=== PATIENT | male | born 1935 | race Caucasian/White ===

== ENCOUNTER 2019-01-23 00:55 | Emergency (ER) | payer OTHER ==
--- NOTE | 2019-01-23 01:47 | PDOC ---
Attending Attestation - Resident Resident Name: Surya Cross - ED Attending Attestation I have performed the following: I have examined & evaluated the patient, The case was reviewed & discussed with the resident, I agree w/resident's findings & plan - HPI HPI: 01/23/19 02:04 Pt comes with momentary AMS at the NH associated with low blood pressure. In the ER his BP is higher at 120 systolic (above the earlier 90 systolic) Also pt is A+Ox3 here. - Physicial Exam PE: 01/23/19 04:20 Agree with resident exam. - Medical Decision Making 01/23/19 02:07 Blood glucose is 145. 01/23/19 04:19 Labs are normal; Pt will be discharged as he has normal labs ormal CT scan and he is ambulating about. He is at his baseline demented state. He is able to answer questions and he is making sense. Pt does not require admission at this time. He will be sent back to his NH.
[2019-01-23 01:48] VITALS: BP 121/75; PULSE 60; TEMP 98; BMI 60.3
[2019-01-23] MEDS ORDERED: SODIUM CHLORIDE 0.9% 500 ML INFUS.BAG IV ONE (01:53)
[2019-01-23 02:17] LABS: BASO % 0.7 % (0-2.0); EOS % 2.2 % (0-4.5); HEMATOCRIT 36.9 % (35.4-49); HEMOGLOBIN 11.9 GM/dL (11.7-16.9); LYMPH % 13.3 % (8-40); MCH 30.9 pg (25.7-33.7); MCHC 32.1 g/dl (32.0-35.9); MEAN CELL VOLUME 96.1 fl (80-96); MEAN PLT VOLUME 8.7 fl (7.5-11.1); MONO % 3.6 % (3.8-10.2); NEUT % 80.2 % (42.8-82.8); PLATELET COUNT 219 K/MM3 (134-434); RBC 3.84 M/mm3 (4.00-5.60); RDW 15.1 % (11.9-15.9); WHITE BLOOD COUNT 9.1 K/mm3 (4.0-10.0)
[2019-01-23 02:35] LABS: ALBUMIN 3.8 g/dl (3.4-5.0); BILIRUBIN,TOTAL 0.2 mg/dL (0.2-1); BLOOD UREA NITROGEN 62.5 mg/dL (7-18); CALCIUM 8.9 mg/dL (8.5-10.1); CREATININE 2.3 mg/dL (0.55-1.3)
--- NOTE | 2019-01-23 03:27 | PDOC ---
History of Present Illness - General Chief Complaint: Altered Mental Status Stated Complaint: UNRESPONSIVE Time Seen by Provider: 01/23/19 01:09 History Source: Patient Exam Limitations: No Limitations - History of Present Illness Initial Comments: 01/23/19 01:13 Sajan Peña is an 83M with PMH Alzheimer's, HTN presenting from [facility] for an episode of unresponsiveness. Per [facility] report, patient was sitting outside and suddenly became unresponsive for 5 minutes. BP measured 90/40, HR 50s, sweating profusely, cold skin. Slowly became more responsive and returned to baseline mental status, but sent to ED for concern over this sudden episode. Otherwise no reported fever, fall, sickness, or other prodromal symptoms. At baseline, patient is oriented to self but is confused, does not know where he is, wanders around the home, and otherwise is pleasant. Patient himself reports his own name, does not know the month, year, or time of day. Does not know where he is or why he is at the hospital. Denies fever, chills, CP, SOB, abd pain, weakness, urinary sx, C/D, N/V. Says he feels otherwise quite good. Past History - Past Medical History Allergies/Adverse Reactions: Allergies Allergy/AdvReac Type Severity Reaction Status Date / Time cefixime Allergy Mild Verified 01/23/19 01:23 Cephalosporins Allergy Mild Verified 01/23/19 01:25 doxycycline Allergy Mild Verified 01/23/19 01:24 iodine Allergy Mild Verified 01/23/19 01:25 tetracycline Allergy Mild Verified 01/23/19 01:24 Home Medications: Ambulatory Orders Acetaminophen [Tylenol] 325 mg PO DAILY 01/23/19 Allopurinol [Zyloprim -] 100 mg PO DAILY 01/23/19 Aspirin 81 mg PO DAILY 01/23/19 Docusate Sodium [Colace] 100 mg PO DAILY 01/23/19 Dutasteride 0.5 mg PO DAILY 01/23/19 Fenofibrate [Lipofen] 150 mg PO DAILY 01/23/19 Gabapentin 100 mg PO DAILY 01/23/19 Isosorbide Mononitrate [Isosorbide Mononitrate ER] 30 mg PO DAILY 01/23/19 Metformin HCl [Metformin HCl ER] 500 mg PO DAILY 01/23/19 Metoprolol Tartrate 25 mg PO DAILY 01/23/19 Mirtazapine [Remeron -] 30 mg PO DAILY 01/23/19 Pantoprazole Sodium 40 mg PO DAILY 01/23/19 Ramipril 01/23/19 Sennosides [Senna] 8.6 mg PO DAILY 01/23/19 Sitagliptin Phosphate [Januvia] 50 mg PO DAILY 01/23/19 Tamsulosin HCl 0.4 mg PO DAILY 01/23/19 COPD: No - Suicide/Smoking/Psychosocial Hx Smoking History: Unknown if ever smoked Hx Alcohol Use: No Drug/Substance Use Hx: No Review of Systems - Review of Systems Able to Perform ROS?: Yes Is the patient limited Faroese proficient: No Constitutional: No: Symptoms Reported HEENTM: No: Symptoms Reported Respiratory: No: Symptoms reported Cardiac (ROS): No: Symptoms Reported ABD/GI: No: Symptoms Reported : No: Symptoms Reported Musculoskeletal: No: Symptoms Reported Integumentary: No: Symptoms Reported Neurological: No: Symptoms reported Endocrine: No: Symptoms Reported Hematologic/Lymphatic: No: Symptoms Reported All Other Systems: Reviewed and Negative *Physical Exam - Vital Signs Last Vital Signs Temp Pulse Resp BP Pulse Ox 98.0 F 60 20 121/75 100 01/23/19 01:46 01/23/19 01:46 01/23/19 01:46 01/23/19 01:46 01/23/19 01:46 - Physical Exam General Appearance: Yes: Nourished, Appropriately Dressed. No: Apparent Distress HEENT: positive: EOMI, MARY, Normal Voice, Symmetrical, Pharynx Normal, Hearing Grossly Normal. negative: Scleral Icterus (R), Scleral Icterus (L), Pharyngeal Erythema, Tonsillar Exudate, Tonsillar Erythema Neck: positive: Trachea midline, Supple. negative: Tender, Lymphadenopathy (R) , Lymphadenopathy (L) Respiratory/Chest: positive: Lungs Clear, Normal Breath Sounds. negative: Chest Tender, Respiratory Distress, Crackles, Rales, Rhonchi Cardiovascular: positive: Regular Rhythm, Regular Rate. negative: Murmur Gastrointestinal/Abdominal: positive: Normal Bowel Sounds, Flat, Soft Musculoskeletal: positive: Normal Inspection. negative: CVA Tenderness Extremity: positive: Normal Capillary Refill, Normal Inspection, Normal Range of Motion, Pelvis Stable. negative: Tender Integumentary: positive: Normal Color, Dry, Warm Neurologic: positive: Alert, Normal Mood/Affect, Normal Response, Motor Strength 5/5, Disoriented (oriented to name, but not place or time) ED Treatment Course - LABORATORY CBC & Chemistry Diagram: 01/23/19 02:00 01/23/19 02:00 - ADDITIONAL ORDERS Additional order review: Laboratory Results 01/23/19 01/23/19 01/23/19 02:00 02:00 01:54 Sodium 144 Potassium 6.0 H Chloride 117 H Carbon Dioxide 20 L Anion Gap 8 BUN 62.5 H Creatinine 2.3 H Est GFR (CKD-EPI)AfAm 28.93 Est GFR (CKD-EPI)NonAf 24.96 POC Glucometer 145 Random Glucose 147 H Calcium 8.9 Total Bilirubin 0.2 AST 41 H ALT 25 Alkaline Phosphatase 59 Creatine Kinase 621 H Troponin I < 0.02 Total Protein 7.0 Albumin 3.8 01/23/19 01/23/19 02:00 01:54 RBC 3.84 L MCV 96.1 H MCHC 32.1 RDW 15.1 MPV 8.7 Neutrophils % 80.2 Lymphocytes % 13.3 Monocytes % 3.6 L Eosinophils % 2.2 Basophils % 0.7 POC Glucometer 145 - RADIOLOGY Radiology Studies Ordered: Category Date Time Status CHEST X-RAY PORTABLE* [RAD] Stat Radiology 01/23/19 01:53 Ordered - Medications Given in the ED: ED Medications Discontinued Medications Generic Name Dose Route Start Last Admin Trade Name Freq PRN Reason Stop Dose Admin Sodium Chloride 1,000 ml 01/23/19 01:53 01/23/19 02:21 Normal Saline - IV 01/23/19 01:54 1,000 ml ONCE ONE Administration Medical Decision Making - Medical Decision Making 01/23/19 01:13 Sajan Peña is an 83M with PMH Alzheimer's, HTN presenting from [facility] for an episode of unresponsiveness and AMS. Patient presentation is concerning for BP drop and diaphoresis, possibly TIA vs. PA vs. medication overdose vs. autonomic dysfunction. Will evaluate for AMS via: CMP CBC CP ECG CXR UA/UC Head CT ECG shows NSR with PACs, HR 60, no concerning features. UA does not show signs on infection. K 6.1, baseline 4.1. Cr 2.3, 2.3 at baseline per [facility] records. CT head read pending. 01/23/19 05:35 CT head shows mild volume loss but no acute pathology. Good to go home after treating elevated potassium. 01/23/19 05:35 Patient agitated, removed IV, cursing at staff, and refusing kayelate. Stable to send home without treating potassium but will recommend follow-up given normal ECG and no s/s hyperkalemia. *DC/Admit/Observation/Transfer Diagnosis at time of Disposition: Altered mental status Qualifiers: Altered mental status type: disorientation Qualified Code(s): R41.0 - Disorientation, unspecified - Discharge Dispostion Disposition: [facility] Condition at time of disposition: Stable Decision to Admit order: No - Referrals Referrals: Prasad Khan [Primary Care Provider] - - Patient Instructions Printed Discharge Instructions: DI for Altered Mental Status Additional Instructions: Today you were evaluated for altered mental status. We got blood labs that show no abnormalities from your previous labs other than elevated potassium. When [facility] to [facility] please take some kayexelate to treat this. Your urine does not show any signs of infection You head CT shows mild volume loss consistent with dementia and age, but no other concerning pathologies that need immediate treatment. The cause of your episode of low blood pressure, unresponsiveness, and sweating is still unknown, but you have returned back to baseline and are doing well at this time. Please follow-up with your primary doctor to further manage your symptoms, and see your neurologist for possible causes of your symptoms related to Alzheimer' s. If you experience worsening mental status, agitation, chest pain, fever, shortness of breath, changes to your vision, numbness, confusion, or any other new or concerning symptoms, please return to the [facility]. - Post Discharge Activity
[2019-01-23 04:27] LABS: URINE APPEARANCE CLEAR; URINE COLOR YELLOW; URINE GLUCOSE (UA) NEGATIVE (NEGATIVE)
[2019-01-23 04:28] LABS: PH,URINE 5.5 (5.0-8.0); URINE BILIRUBIN NEGATIVE (NEGATIVE); URINE KETONE NEGATIVE (NEGATIVE); URINE LEUK ESTERASE NEGATIVE (NEGATIVE); URINE NITRITE NEGATIVE (NEGATIVE); URINE PROTEIN N (NEGATIVE); URINE UROBILINOGEN 0.2 mg/dL (0.2-1.0)
[2019-01-23] MEDS ORDERED: SODIUM POLYSTYRENE SULFONATE 15 GM/60 ML BOTTLE PO ONE (05:37)
--- NOTE | 2019-01-24 16:59 | EKG ---
Test Reason : Blood Pressure : / mmHG Vent. Rate : 060 BPM Atrial Rate : 060 BPM P-R Int : 194 ms QRS Dur : 092 ms QT Int : 384 ms P-R-T Axes : 074 -04 037 degrees QTc Int : 384 ms SINUS RHYTHM WITH PREMATURE ATRIAL COMPLEXES OTHERWISE NORMAL ECG NO PREVIOUS ECGS AVAILABLE Confirmed by ORIANA RANDALL MD ([id number]) on 01/24/2019 4:58:55 PM Referred By: Confirmed By:ORIANA RANDALL MD
== END 2019-01-23 06:36 ==
LOC: JER 00:55
DX: R41.0 Disorientation, unspecified (principal); E87.5 Hyperkalemia; I10 Essential (primary) hypertension; G30.9 Alzheimer's disease, unspecified; F02.80 Dementia in other diseases classified elsewhere, unspecified severity, without behavioral disturbance, psychotic disturbance, mood disturbance, and anxiety
CPT/HCPCS: 36415; 70450-TC; 71045-TC-FY; 80053; 81003; 82550; 82553; 82962; 84484; 85025; 87086; 93005; 93010; 99283-25